=== PATIENT | male | born 1970 | race American Indian/Alaskan Native ===

== ENCOUNTER 2017-07-26 10:12 | Day surgery (SDC) | payer MEDICAID ==
[2017-07-20 09:24] VITALS: BMI 31.4
[2017-07-26] MEDS ORDERED: Lidocaine 2% Inj (20ml) ONE (10:45)
[2017-07-26] MEDS ORDERED: Propofol 10 mg/ml Inj (20 ML) ONE ×2 (10:45→11:05)
[2017-07-26] MEDS ORDERED: Lactated Ringer's 1,000 ML IV SCH (11:15)
[2017-07-26 13:33] VITALS: BP 131/83; PULSE 66; RESP 16; TEMP 97.7; O2SAT 99
== END 2017-07-26 12:34 | disposition home or self-care (01) ==
LOC: ENDO 10:12
PROVIDERS: ATTEND Internal Medicine Gastroenterology
DX: Z12.11 Encounter for screening for malignant neoplasm of colon (principal); D12.3 Benign neoplasm of transverse colon; K63.5 Polyp of colon; K64.8 Other hemorrhoids
CPT/HCPCS: 45380; 88305; J2704; J7040; J7120